=== PATIENT | male | born 1975 | race Caucasian/White ===

== ENCOUNTER 2019-08-05 22:35 | Emergency (ER) | payer OTHER ==
[~2019-08-05] VITALS: Ht 175.3 cm; Wt 79.5 kg
[2019-08-05 22:35] VITALS: BP 123/65
[2019-08-05 23:27] LABS: INFLUENZA A PATIENT NEGATIVE (NEGATIVE); INFLUENZA B PATIENT POSITIVE (NEGATIVE)
--- NOTE | 2019-08-06 18:56 | PHYS DOC ---
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 Patient also reports fever 100.4 prior to ED arrival. Patient's been taken ibuprofen and Claritin D for her symptoms and allergies. Denies shortness of breath, wheezing, chest pain palpitations, nausea vomiting or sweats. No headache, neck stiffness, nausea vomiting or rash. No other acute symptoms or complaints. [] Review of Systems Review of Systems ROS as per HPI All other systems were reviewed and found to be within normal limits, except as documented in this note. Allergies Allergies Allergies Coded Allergies Type Severity Reaction Last Updated Verified No Known Drug Allergies 08/05/19 No Physical Exam Physical Exam Constitutional: Well developed, well nourished, no acute distress, non-toxic appearance. [] HENT: Normocephalic, atraumatic, bilateral external ears normal, oropharynx moist, no oral exudates, nose normal. [] Eyes: PERRLA, EOMI, conjunctiva normal, no discharge. [] Neck: Normal range of motion, no tenderness, supple, no stridor. [] Cardiovascular:Heart rate regular rhythm, no murmur [] Lungs & Thorax: Bilateral breath sounds clear to auscultation [] Neurologic: Alert and oriented X 3, normal motor function, normal sensory function, no focal deficits noted. [] Psychologic: Affect normal, judgement normal, mood normal. [] Current Patient Data Vital Signs Vital Signs Date Time Temp Pulse Resp B/P (MAP) Pulse Ox O2 Delivery O2 Flow Rate FiO2 08/05/19 22:35 99.5 90 20 123/65 (84) 97 Room Air Lab Results Laboratory Tests Test 08/05/19 22:55 Influenza Type A (Rapid) Negative (NEGATIVE) Influenza Type B (Rapid) Positive (NEGATIVE) EKG EKG [] Radiology/Procedures Radiology/Procedures [] Course & Med Decision Making Course & Med Decision Making Pertinent Labs and Imaging studies reviewed. (See chart for details) [Influenza B without respiratory compromise. Patient's outside the window of antiviral treatment. Recommend continue supportive care with PCP follow-up. Return precautions reviewed.] Dragon Disclaimer Dragon Disclaimer This electronic medical record was generated, in whole or in part, using a voice recognition dictation system. Departure Departure: Impression: Primary Impression: Influenza Disposition: 01 HOME, SELF-CARE Condition: STABLE Patient Instructions: Influenza, Adult, [id number] Additional Instructions: You were evaluated in the emergency department for fever, sore throat and cough. An influenza test was performed and is positive for influenza B. Please continue allergy medication and take ibuprofen as needed for fever and body aches. Increase fluid intake and follow-up with your PCP in 3-5 days if symptoms persist. Avoid going out in public is you are contagious for the next 3 days. STEVE MARTIN DO Aug 06, 2019 18:55
== END 2019-08-05 23:45 | disposition home or self-care (01) ==
LOC: ER 22:35
DX: J10.1 Influenza due to other identified influenza virus with other respiratory manifestations (principal)
CPT/HCPCS: 87804; 99283

== ENCOUNTER → 2020-01-14 | Outpatient (CLI) | payer OTHER | END | disposition home or self-care (01) | LOC: LAB 13:30 | PROVIDERS: ATTEND Registered Nurse | DX: Z01.818 Encounter for other preprocedural examination (principal); Z11.59 Encounter for screening for other viral diseases; Z12.11 Encounter for screening for malignant neoplasm of colon | CPT/HCPCS: U0003-CS ==

== ENCOUNTER → 2020-01-18 | Day surgery (SDC) | payer OTHER ==
[~2020-01-18] MED LIST: IPRATRPIUM/ALBUTEROL 0.5/2.5MG 3 ML NEBU. NEB PRN; IV RINGERS SOLUTION,LACTATED 1,000 ML IV SCH; MIDAZOLAM HCL PF 2 MG/2 ML VIAL. IV ONE; ONDANSETRON PF 4 MG/2 ML VIAL. IV PRN; PROPOFOL 10,000 MCG/ML (20ML) VIAL IV ONE
[2020-01-18 09:37] VITALS: BP 109/68
--- NOTE | 2020-01-20 14:11 | PATHOLOGY ---
[facility] Accession Number: [id number] . 01 Material submitted: . colon - RANDOM COLON BX . 01 Clinical history: . For H. pylori . 02 Diagnosis: Colonic mucosa, random colon biopsies: - No significant pathologic abnormalities. (JPM:sita; 01/20/2020) S 01/20/2020 0911 Local . 02 Comment: Sections of the random colon biopsy reveal multiple segments of colonic mucosa containing several, focally hyperplastic mucosal-associated lymphoid aggregates. There is no evidence of a chronic destructive colitis, lymphocytic colitis or collagenous colitis. (JPM:sita; 01/20/2020) . 02 Electronically signed: . Enrrique Franco MD, Pathologist NPI- [id number] . 01 Gross description: . The specimen is received in formalin, labeled "Sergio Ascencio, random colon BX" and consists of multiple fragments of matamoros tissue measuring 1.4 x 0.8 x 0.3 cm in aggregate which are entirely submitted in A1. (SDY; 01/19/2020) SYU/SYU 01/19/2020 1004 Local . 02 Pathologist provided ICD-10: Z03.89 . 02 CPT . 646657 Specimen Comment: A courtesy copy of this report has been sent to [phone] Specimen Comment: [id number] Specimen Comment: Report sent to / DR LEE Performed at: 01 [facility] [address], [place] [id number] MD Gatito Santana MD Phone: [phone] Performed at: 02 [facility] [address], [place] [id number] MD Enrrique Franco MD Phone: [phone]
== END | disposition home or self-care (01) ==
LOC: SURG 07:18
PROVIDERS: ATTEND Emergency Medicine
DX: Z09 Encounter for follow-up examination after completed treatment for conditions other than malignant neoplasm (principal); K63.89 Other specified diseases of intestine; K21.9 Gastro-esophageal reflux disease without esophagitis; Z86.010 Personal history of colon polyps; Z96.641 Presence of right artificial hip joint; Z79.899 Other long term (current) drug therapy; Z98.890 Other specified postprocedural states; Z91.048 Other nonmedicinal substance allergy status
CPT/HCPCS: 45380; 88305; J2704; J7120

== ENCOUNTER 2021-02-21 22:01 | Emergency (ER) | payer OTHER ==
[~2021-02-21] VITALS: Ht 175.3 cm; Wt 84.8 kg
[2021-02-21] MEDS ORDERED: CEPH500T PO (22:28)
--- NOTE | 2021-02-21 22:29 | PHYS DOC ---
Past History Past Medical History: Other Additional Past Medical Histor: spleenic stenosis Past Surgical History: No Surgical History Alcohol Use: None Adult General Chief Complaint Chief Complaint: UPPER EXTREMITY PAIN HPI HPI Patient is an otherwise healthy 45-year-old male who presents with redness and swelling around the edge of the distal tip of his right middle finger just next to the nail for the last couple days. States he thinks it is because he had a hangnail and was biting on it. Denies any fevers, chest pain, shortness of breath, abdominal pain, nausea, vomiting. Review of Systems Review of Systems Review of systems otherwise unremarkable except noted in HPI Allergies Allergies Allergies Coded Allergies Type Severity Reaction Last Updated Verified adhesive tape Allergy Unknown 01/18/20 Yes Physical Exam Physical Exam Constitutional: Well developed, well nourished, no acute distress, non-toxic appearance. [] Cardiovascular:Heart rate regular rhythm, no murmur [] Lungs & Thorax: Bilateral breath sounds clear to auscultation [] Extremities: Patient has a tiny area of erythema around the lateral part of the nail of the third right digit suggestive of paronychia although patient drained it before coming with a needle and there is no more fluctuance. Neurologic: Alert and oriented X 3, normal motor function, normal sensory function, no focal deficits noted. [] Psychologic: Affect normal, judgement normal, mood normal. [] Current Patient Data Vital Signs Vital Signs Date Time Temp Pulse Resp B/P (MAP) Pulse Ox O2 Delivery O2 Flow Rate FiO2 02/21/21 22:12 97.7 67 16 104/72 (83) 97 Room Air EKG EKG [] Radiology/Procedures Radiology/Procedures [] Heart Score C/O Chest Pain: No Risk Factors: Risk Factors: DM, Current or recent (<one month) smoker, HTN, HLP, family history of CAD, obesity. Risk Scores: Risk Factors: DM, Current or recent (<one month) smoker, HTN, HLP, family history of CAD, obesity. Course & Med Decision Making Course & Med Decision Making Patient is a 45-year-old male presents to the emergency department with a paronychia Vital signs not concerning. Physical exam noted above. Patient up-to-date on tetanus. Started on Keflex in the ED. Advised on wound management. Advised to follow-up with primary care to set up a follow-up visit. Gave return precautions to the ED. Patient grateful, verbalized understanding and agreed with plan of discharge. [] Dragon Disclaimer Dragon Disclaimer This electronic medical record was generated, in whole or in part, using a voice recognition dictation system. Departure Departure: Impression: Primary Impression: Paronychia Disposition: HOME / SELF CARE / HOMELESS Condition: GOOD Referrals: JAGJIT LEE DO (PCP) Patient Instructions: Inocencio, Scne-ke-Giks Additional Instructions: Thanks for coming into the emergency department tonight and allowing us to take care of you. Please read the attached information carefully. Please take all y our antibiotics until they are gone. You can use Tylenol and ibuprofen as needed. You can also use ice. Please follow-up with your primary care as needed. Please come back to the ED with new or concerning symptoms as discussed. Please do not bite on your nails, stab or cut at the wound. Scripts Cephalexin (CEPHALEXIN) 500 Mg Tablet 1 TAB PO QID for infection for 5 Days, #20 TAB Prov: JESSE ASHTON MD 02/21/21 JESSE ASHTON MD Feb 21, 2021 22:29
[2021-02-21] MEDS ORDERED: CEPHALEXIN 250 MG CAPSULE ONE (22:33)
[2021-02-21 22:36] VITALS: BP 106/70
[2021-02-21] MEDS: CEPHALEXIN 250 MG CAPSULE PO ONE (22:38)
== END 2021-02-21 22:40 | disposition home or self-care (01) ==
LOC: ER 22:01
DX: L03.011 Cellulitis of right finger (principal); Z88.8 Allergy status to other drugs, medicaments and biological substances
CPT/HCPCS: 99283